=== PATIENT | female | born 1980 | race Caucasian/White ===

== ENCOUNTER 2016-08-26 03:09 | Emergency (ER) | payer MEDICAID ==
[2016-08-26] MEDS ORDERED: KETOROLAC TROMETHAMINE 60 MG/2 ML VIAL IM ONE ×2 (04:01→04:02)
--- OUTSIDE RECORDS SUMMARY | 2016-08-26 04:01 | XMS REPORT | Continuity of Care Document ---
:1980 Author Organization [facility] [place] [address] Care Team Providers Name Role Phone Unavailable Primary Care Provider Unavailable Source Comments This disclosure is being made pursuant to the [facility] program and maynot contain all information available regarding this patient.[facility] Active Allergies and Adverse Reactions Not on File Current Medications Be aware that medications may not be up to date as of this document. Alwaysverify current medications with the patient. Not on file Active Problems Not on file Social History Tobacco Use Types Packs/Day Years Used Date Never Assessed Plan of Care Health Maintenance Due Date Last Done Comments Retired-Pertussis Vaccine Adult 2001 Retired-Tetanus Vaccine Adult 2001 Pap Smear 2003 Retired-INFLUENZA VACCINE 12/05/2014 Results from Last 3 Months Not on file
--- NOTE | 2016-08-26 04:02 | ERNOTE ---
ENT HPI Presenting Symptoms: dental pain Time Seen by Provider: 08/26/16 03:44 Source: patient Exam Limitations: no limitations - Immun/Allergies/Home Medications Immunizations: IMMUNIZATION HX Immunizations Up to Date Yes Allergies/Adverse Reactions: Allergies Allergy/AdvReac Type Severity Reaction Status Date / Time latex Allergy Verified 08/26/16 03:18 nitrofurantoin Allergy Verified 08/26/16 03:18 [From Macrobid] shellfish derived Allergy Verified 08/26/16 03:18 Home Medications: HOME MEDICATIONS Citalopram Hydrobromide [Citalopram HBr] 20 mg PO HS 08/26/16 [Last Taken Unknown] Cyanocobalamin (Vitamin B-12) [Vitamin B12] 2,500 mcg PO DAILY 08/26/16 [Last Taken Unknown] Dextroamphetamine/Amphetamine [Adderall 15 mg Tablet] 15 mg PO BID 08/26/16 [ Last Taken Unknown] Ferrous Sulfate [Iron] 325 mg PO DAILY 08/26/16 [Last Taken Unknown] Gabapentin [Gralise] 1,200 mg PO HS 08/26/16 [Last Taken Unknown] Gabapentin [Gralise] 600 mg PO BID 08/26/16 [Last Taken Unknown] QUEtiapine FUMARATE [Seroquel] 200 mg PO HS 08/26/16 [Last Taken Unknown] tiZANidine HCL [Tizanidine HCl] 4 mg PO HS 08/26/16 [Last Taken Unknown] - History of Present Illness Narrative: Pt states she has broken teeth and one began bothering her tonight. She states she has an appointment with a dentist in a couple of weeks. Severity: Present: moderate, severe ENT Location: Present: dental Prearrival Treatment: Present: no prearrival treatment Modifying Factors - Improves: Reports: nothing Modifying Factors - Worsens: Reports: heat, cold Associated Symptoms - ENT: Denies: fever Review of Systems - Review of Systems Constitutional: Absent: recent illness EYE: Present: no symptoms reported ENT: Present: See HPI Respiratory: Present: no symptoms reported Cardiology: Present: no symptoms reported Gastrointestinal/Abdominal: Present: no symptoms reported Genitourinary: Present: no symptoms reported Musculoskeletal: Present: no symptoms reported Skin: Absent: rash Neurological: Present: no symptoms reported Endocrine: Present: no symptoms reported, unexplained weight loss Psych: Present: no symptoms reported - Patient's Past Medical History Patient History - Medical: Bipolar, Fibromyalgia Patient History - Cardiac/Respiratory: No pertinent hx Patient History - Cancer: No Hx of Cancer Patient History - Surgical Procedures: Cholecystectomy - Social History Living Situations: home Smoking Status: Current every day smoker Alcohol Use: none Drug Use: none - Immunizations Immunizations Up to Date: Yes Physical Exam - Physical Exam General Appearance: Present: wd/wn, alert, mild distress Eye Exam: Normal inspection: bilateral Ears, Nose, Throat: Present: normal except - - Multiple broken teeth. Current problem tooth is right upper premolar. Tooth is fractured on the buccal side. gingiva did not show any swelling or erythema Neck: Present: normal inspection, nontender, supple Respiratory: Present: no respiratory distress, no accessory muscle use Neurological Exam: Present: alert, oriented, normal mood/affect, no motor/ sensory deficits Skin Exam: Present: normal color, warm/dry Lymphatic Exam: Present: no adenopathy ED Progress - Vital Signs Patient's Vital Signs:: I have reviewed the patient's vital signs. Vital Signs: Vital Signs 08/26/16 03:14 Temperature 36.5 C Pulse Rate 89 Respiratory 18 Rate Blood Pressure 152/89 O2 Sat by Pulse 97 Oximetry - Progress/Reassessment Chief Complaint: Dental Problem Progress:: Unchanged Progress Note-Subjective: 08/26/16 04:34 pt discharged 25 minutes after being given toradol injection. Had nurse explain to patient that toradol will increase in effectiveness over the next 2 hours. Encouraged pt to use dental wax to cover the open tooth/ root. Nurse gave patient information on emergency dental clinic [facility] Clinical Impression: Fracture of tooth Qualifiers: Encounter type: initial encounter Fracture type: open Qualified Code(s): S02.5XXB - Fracture of tooth (traumatic), initial encounter for open fracture - Departure Disposition: Home Follow Up Needed Condition: Fair Instructions: Tooth Injuries Additional Instructions: You may buy tooth wax to cover the damaged part of the tooth, this will help reduce the pain. Take ibuprofen 800mg up to 3 times a day to help the pain as well. See your regular doctor as needed
[2016-08-26 04:33] VITALS: BP 146/78
== END 2016-08-26 04:31 | disposition home or self-care (01) ==
LOC: ER 03:09
DX: S02.5XXB Fracture of tooth (traumatic), initial encounter for open fracture (principal); F17.200 Nicotine dependence, unspecified, uncomplicated; F31.9 Bipolar disorder, unspecified; M79.7 Fibromyalgia